=== PATIENT | female | born 1995 | race Hispanic/Latino ===

== ENCOUNTER 2019-07-02 11:09 | Emergency (ER) | payer MEDICAID, OTHER ==
[2019-07-02] MEDS ORDERED: LIDOCAINE HCL 1% 20 ML VIAL ONE (11:22)
[2019-07-02] MEDS ORDERED: TETANUS/DIPHTHERIA TOXOID [ADULT] 0.5 ML VIAL IM ONE (11:23)
== END 2019-07-02 13:03 | disposition home or self-care (01) ==
LOC: EDSEX 11:09 → EDH 11:09
DX: S61.211A Laceration without foreign body of left index finger without damage to nail, initial encounter (principal); X58.XXXA Exposure to other specified factors, initial encounter; Y93.G3 Activity, cooking and baking; Y92.89 Other specified places as the place of occurrence of the external cause; Y99.8 Other external cause status
CPT/HCPCS: 12001; 73140; 90471; 90714